=== PATIENT | male | born 1975 | race Two or more races ===

== ENCOUNTER 2022-01-23 17:51 | Emergency (ER) | payer OTHER ==
[~2022-01-23] VITALS: Ht 175.3 cm; Wt 100.0 kg
[2022-01-23 18:35] VITALS: BP 130/101
== END 2022-01-23 19:37 ==
LOC: EMS 17:57
DX: Z13.9 Encounter for screening, unspecified (principal)
CPT/HCPCS: 99283

== ENCOUNTER 2022-01-24 10:51 | Inpatient (IN) | payer OTHER ==
[~2022-01-24] VITALS: Ht 175.3 cm; Wt 97.0 kg
[2022-01-24 11:48] LABS: BASOPHILS % (AUTO) 0.3 % (0.0-2.0); EOSINOPHILS % (AUTO) 0.9 % (1.0-6.0); HEMATOCRIT 38.6 % (41-53); HEMOGLOBIN 13.4 g/dL (13.5-17.5); LYMPHOCYTES # (AUTO) 1.5 K/uL (1.0-4.8); LYMPHOCYTES % (AUTO) 18.7 % (22.0-44.0); MEAN CORPUSCULAR HEMOGLOBIN 32.5 pg (26.0-34.0); MEAN CORPUSCULAR HGB CONC 34.7 G/dL (31.0-37.0); MEAN CORPUSCULAR VOLUME 94 fL (80-100); MONOCYTES # (AUTO) 0.6 K/uL (0.1-1.0); MONOCYTES % (AUTO) 7.4 % (2.0-9.0); NEUTROPHILS # (AUTO) 5.8 K/uL (1.8-7.7); NEUTROPHILS % (AUTO) 72.7 % (40.0-70.0); PLATELET COUNT (AUTO) 228 K/uL (150-450); RED BLOOD CELL COUNT(AUTO) 4.12 MIL/uL (4.50-5.90); RED CELL DISTRIBUTION WIDTH 13.1 % (11.5-14.5)
[2022-01-24 12:10] LABS: ANION GAP 7 mmol/L (8-16); CALCIUM, TOTAL 8.9 mg/dL (8.8-10.5); CARBON DIOXIDE 28 mmol/L (22-29); CHLORIDE 104 mmol/L (98-107); CREATININE 0.98 mg/dL (0.60-1.30); GLUCOSE,RANDOM 143 mg/dL (70-110); SODIUM SERUM 139 mmol/L (136-145); UREA NITROGEN, BLOOD 22 mg/dL (7-18)
[2022-01-24 12:13] LABS: GLOMERULAR FILTR. RATE CALC > 60 mL/min (>60)
[2022-01-24 12:16] LABS: ALANINE AMINOTRANSFERASE 24 U/L (12-78); ALBUMIN 4.3 g/dL (3.4-5.0); ALKALINE PHOSPHATASE 118 U/L (46-116); ASPARTATE AMINOTRANSFERASE 15 U/L (15-37); BILIRUBIN,TOTAL 0.2 mg/dL (0.1-1.0); TOTAL PROTEIN, SERUM 7.9 g/dL (6.4-8.2)
[2022-01-24 12:19] LABS: COVID AG,FIA SOURCE NASOPHARYNGEAL
[2022-01-24] MEDS ORDERED: MAGNESIUM HYDROXIDE SUSPENSION 30 ML UDCUP PO PRN (16:15)
[2022-01-24] MEDS ORDERED: ONDANSETRON HCL 4 MG TABLET PO PRN (16:15)
[2022-01-24] MEDS ORDERED: NICOTINE 14 MG/24 HOUR PATCH TD PRN (16:15)
[2022-01-24] MEDS ORDERED: IBUPROFEN 400 MG TABLET PO PRN (16:15)
[2022-01-24] MEDS ORDERED: ACETAMINOPHEN 325 MG TABLET PO PRN (16:15)
[2022-01-24] MEDS ORDERED: DOCUSATE SODIUM 100 MG CAPSULE PO PRN (16:15)
[2022-01-24] MEDS ORDERED: LOPERAMIDE HCL 2 MG CAPSULE PO PRN (16:15)
[2022-01-24] MEDS ORDERED: ALBUTEROL SULFATE HFA 90 MCG/PUFF 8 GM INHALER IH PRN (16:15)
[2022-01-24] MEDS ORDERED: PETROLATUM,WHITE 28 GM JELLY TP PRN (16:15)
[2022-01-24] MEDS ORDERED: CloNIDine HCL 0.1 MG TABLET PO PRN (16:15)
[2022-01-24] MEDS ORDERED: MAG HYDROX/AL HYDROX/SIMETH ES 30 ML SUSPENSION UDCUP PO PRN (16:15)
[2022-01-24] MEDS ORDERED: GuaiFENesin/D-METHORPHAN [SUGAR-FREE] 200-20MG/10 ML SYRUP UDCUP PO PRN (16:15)
[2022-01-24] MEDS ORDERED: DiphenhydrAMINE HCL 50 MG/ML VIAL IM ONE (20:30)
[2022-01-24] MEDS ORDERED: LORazepam 2 MG/ML VIAL IM ONE (20:30)
[2022-01-24] MEDS ORDERED: HALOPERIDOL LACTATE 5 MG/ML VIAL IM ONE (20:30)
[2022-01-25 19:51] VITALS: BP 113/68
[2022-01-26 04:13] VITALS: BP 125/84
[2022-01-26 08:01] VITALS: BP 111/77
[2022-01-26] MEDS ORDERED: INFLUENZA VIRUS VACCINE QVS 2022-23 (6MO+)/PF 60 MCG/0.5 ML SYRINGE IM. ONE (10:45)
[2022-01-26 16:25] VITALS: BP 109/71
== END 2022-01-26 20:40 | DRG 885 ==
LOC: EMS 11:39 → 6S 18:47
PROVIDERS: ADMIT Internal Medicine; ATTEND Internal Medicine
DX: F29 Unspecified psychosis not due to a substance or known physiological condition (principal); R45.851 Suicidal ideations; R73.9 Hyperglycemia, unspecified; F41.9 Anxiety disorder, unspecified; E66.9 Obesity, unspecified; Z20.822 Contact with and (suspected) exposure to COVID-19; Z68.31 Body mass index [BMI] 31.0-31.9, adult; Z79.899 Other long term (current) drug therapy
CPT/HCPCS: 80053; 85025; 90686; 99285; G0480; J1200; J1630; J2060